=== PATIENT | female | born 1995 | race Caucasian/White ===

== ENCOUNTER 2020-01-05 05:53 | Inpatient (IN) ==
[2020-01-05] MEDS ORDERED: *HR* FentaNYL (PF) 100 MCG/2 ML VIAL IVP PRN (06:02)
[2020-01-05] MEDS ORDERED: Lidocaine 1% 20 ML MDV INFILT PRN (06:02)
[2020-01-05] MEDS ORDERED: Naloxone 0.4 MG/ML INJ IVP PRN ×2 (06:02→09:21)
[2020-01-05] MEDS ORDERED: Famotidine 20 MG/2 ML VIAL IVP PRN (06:02)
[2020-01-05] MEDS ORDERED: Azithromycin 500 MG in 0.9 % Sodium Chloride 250 ML IVPB ONE (06:02)
[2020-01-05] MEDS ORDERED: Ondansetron 4 MG/2 ML VIAL IVP PRN ×2 (06:02→09:21)
[2020-01-05] MEDS ORDERED: Metoclopramide 10 MG/2 ML VIAL IVP PRN (06:02)
[2020-01-05] MEDS ORDERED: Penicillin G Potassium 5,000,000 UNIT in 0.9 % Sodium Chloride Mini Bag 100 ML IVPB ONE (06:02)
[2020-01-05 06:37] LABS: Basophils % 0.2 %; Eosinophils # 0.1 K/mcL (0.0-0.6); Eosinophils % 0.6 %; Hematocrit 34.7 % (35.3-44.9); Hemoglobin 11.7 g/dL (11.5-15.4); Lymphocytes # 1.7 K/mcL (0.6-4.6); Lymphocytes % 20.8 %; Mean Corpuscular HGB Conc 33.7 g/dL (31.6-35.5); Mean Corpuscular Hemoglobin 30.1 pg (28.0-33.3); Mean Corpuscular Volume 89.2 fL (83.0-100.0); Mean Platelet Volume 11.2 fL (9.4-12.4); Monocytes # 0.6 K/mcL (0.0-1.3); Monocytes % 6.6 %; Neutrophils # 5.9 K/mcL (1.6-8.9); Platelet Count 162 K/mcL (140-400); Red Blood Count 3.89 M/mcL (3.82-4.97); Red Cell Distribution Width 13.3 % (11.5-14.5); Segmented Neutrophils % 70.8 %; White Blood Count 8.4 K/mcL (4.3-11.1)
[2020-01-05] MEDS: Ringers Solution, Lactated 1,000 ML IVC SCH ×3 (07:43→14:48)
[2020-01-05] MEDS: Oxytocin 20 units/ LR 1000 mL 20 UNIT/1,000 ML BAG IVC SCH ×2 (08:43→21:23)
[2020-01-05 09:11] LABS: Amphetamine Screen,Urine Negative ng/mL (Cutoff=1000); Barbiturate Screen,Urine Negative ng/mL (Cutoff=200); Benzodiazepines Screen,Urine Negative ng/mL (Cutoff=200); Cannabinoid Screen,Urine Negative ng/mL (Cutoff = 50); Cocaine Screen,Urine Negative ng/mL (Cutoff= 300); Opiate Screen,Urine Negative ng/mL (Cutoff=300); Phencyclidine Screen,Urine Negative ng/mL (Cutoff=25)
[2020-01-05] MEDS ORDERED: Ropivacaine/PF 0.2% 20 ML VIAL EP ONE (09:21)
[2020-01-05] MEDS ORDERED: *HR* FentaNYL (PF) 100 MCG/2 ML VIAL EP ONE (09:21)
[2020-01-05] MEDS ORDERED: EPHEDrine 50 MG/ML VIAL IVP PRN (09:21)
[2020-01-05] MEDS ORDERED: Epidural Premix (fent/bupiv) 110 ML EP SCH (09:30)
[2020-01-05] MEDS: Penicillin G Potassium 2,500,000 UNIT/105 ML UNIT IVPB SCH ×2 (12:08→16:05)
[2020-01-05] MEDS ORDERED: Benzocaine/Menthol 56 GM AEROSOL SPRAY TP PRN (23:37)
[2020-01-05] MEDS ORDERED: Ibuprofen 600 MG TABLET PO PRN (23:37)
[2020-01-05] MEDS ORDERED: Acetaminophen 325 MG TABLET PO PRN (23:37)
[2020-01-05] MEDS ORDERED: Oxytocin 20 units/ LR 1000 mL 20 UNIT/1,000 ML BAG IVC SCH (23:37)
[2020-01-06 07:38] VITALS: BP 116/73
[2020-01-06] MEDS ORDERED: Prenatal Vit/FA 1 EACH TABLET PO SCH (09:00)
== END 2020-01-06 19:45 | disposition home or self-care (01) | DRG 806 ==
LOC: 1NENULAB 05:53 → 1NENUOBS 22:13
PROVIDERS: ADMIT Obstetrics & Gynecology; ATTEND Obstetrics & Gynecology

== ENCOUNTER 2021-03-14 06:05 | Inpatient (IN) ==
[2021-03-14] MEDS ORDERED: Metoclopramide 10 MG/2 ML VIAL IVP PRN (06:21)
[2021-03-14] MEDS ORDERED: *HR* Nalbuphine 10 MG/ML AMPUL IV PRN (06:21)
[2021-03-14] MEDS ORDERED: Azithromycin 500 MG in 0.9 % Sodium Chloride 250 ML IVPB PRN (06:21)
[2021-03-14] MEDS ORDERED: Famotidine 20 MG/2 ML VIAL IVP PRN (06:21)
[2021-03-14] MEDS ORDERED: Penicillin G Potassium 5,000,000 UNIT in 0.9 % Sodium Chloride Mini Bag 100 ML IVPB ONE (06:21)
[2021-03-14] MEDS ORDERED: Naloxone 0.4 MG/ML INJ IVP PRN (06:21)
[2021-03-14] MEDS ORDERED: Ondansetron 4 MG/2 ML VIAL IVP PRN (06:21)
[2021-03-14] MEDS ORDERED: *HR* FentaNYL (PF) 100 MCG/2 ML VIAL IVP PRN (06:21)
[2021-03-14] MEDS ORDERED: Ringers Solution, Lactated 1,000 ML IVC SCH (06:30)
[2021-03-14] MEDS ORDERED: Oxytocin 20 units/ LR 1000 mL 20 UNIT/1,000 ML BAG IVC SCH ×2 (06:30→19:47)
[2021-03-14] MEDS ORDERED: EPHEDrine 50 MG/ML VIAL IVP PRN (06:37)
[2021-03-14] MEDS ORDERED: Epidural Premix (fent/bupiv) 110 ML EP SCH (06:45)
[2021-03-14 06:50] LABS: Basophils % 0.3 %; Eosinophils % 0.6 %; Hematocrit 35.4 % (35.3-44.9); Immature Granulocytes % 0.9 % (0-4); Lymphocytes # 1.7 K/mcL (0.6-4.6); Lymphocytes % 25.5 %; Mean Corpuscular HGB Conc 33.9 g/dL (31.6-35.5); Mean Corpuscular Volume 88.5 fL (83.0-100.0); Mean Platelet Volume 11.9 fL (9.4-12.4); Monocytes # 0.4 K/mcL (0.0-1.3); Monocytes % 6.5 %; Neutrophils # 4.4 K/mcL (1.6-8.9); Platelet Count 138 K/mcL (140-400); Red Cell Distribution Width 13.2 % (11.5-14.5); Segmented Neutrophils % 66.2 %; White Blood Count 6.6 K/mcL (4.3-11.1)
[2021-03-14 06:58] LABS: Amphetamine Screen,Urine Negative ng/mL (Cutoff=1000); Barbiturate Screen,Urine Negative ng/mL (Cutoff=200); Benzodiazepines Screen,Urine Negative ng/mL (Cutoff=300); Cannabinoid Screen,Urine Negative ng/mL (Cutoff = 50); Cocaine Screen,Urine Negative ng/mL (Cutoff= 300); Opiate Screen,Urine Negative ng/mL (Cutoff=300); Phencyclidine Screen,Urine Negative ng/mL (Cutoff=25)
[2021-03-14] MEDS: Penicillin G Potassium 2,500,000 UNIT/105 ML MLS IVPB SCH ×2 (11:25→16:42)
[2021-03-14] MEDS ORDERED: EPINEPHrine 1 MG/ML VIAL ONE (13:35)
[2021-03-14] MEDS ORDERED: Benzocaine/Menthol 56 GM AEROSOL SPRAY TP PRN (19:47)
[2021-03-14] MEDS ORDERED: Ondansetron ODT 4 MG TAB.RAPDIS SL PRN (19:47)
[2021-03-14] MEDS ORDERED: Lanolin 7 G OINT...G. TP PRN (19:47)
[2021-03-14] MEDS: Acetaminophen 325 MG TABLET PO SCH (20:12)
[2021-03-14] MEDS ORDERED: Ibuprofen 600 MG TABLET PO SCH (22:45)
[2021-03-15] MEDS: Acetaminophen 325 MG TABLET PO SCH ×2 (02:18→08:56)
[2021-03-15 07:55] VITALS: BP 112/66; PULSE 61; TEMP 97.9; O2SAT 98
[2021-03-15] MEDS ORDERED: Prenatal Vit/FA 1 EACH TABLET PO SCH (09:00)
== END 2021-03-15 13:21 | disposition home or self-care (01) | DRG 560 ==
LOC: 1NENULAB 06:05 → 1NENUOBS 21:56
PROVIDERS: ADMIT Obstetrics & Gynecology; ATTEND Obstetrics & Gynecology